=== PATIENT | female | born 1970 | race African-American/Black ===

== ENCOUNTER 2019-01-07 15:18 | Outpatient (REF) | payer MEDICAID, SELFPAY ==
[2019-01-07 20:30] LABS: ALT 36 U/L (12-78); AST 13 U/L (15-37); Albumin 3.8 g/dL (3.4-5.0); Alkaline Phosphatase 114 U/L (46-116); Bilirubin, Direct 0.15 mg/dL (0.00-0.20); Bilirubin, Total 0.7 mg/dL (0.2-1.0); Total Protein 7.8 g/dL (6.4-8.2)
[2019-01-09 13:38] LABS: Chlamydia Result Negative; GC Result Negative; Specimen Description URINE
== END 2019-01-07 15:38 ==
LOC: NCHCN 15:18
PROVIDERS: PCP Nurse Practitioner Family; Visit Provider Nurse Practitioner Family
DX: B18.1 Chronic viral hepatitis B without delta-agent (principal); Z11.3 Encounter for screening for infections with a predominantly sexual mode of transmission
CPT/HCPCS: 80076; 87491; 87591